=== PATIENT | female | born 1970 | race African-American/Black ===

== ENCOUNTER 2017-10-12 01:23 | Emergency (ER) | payer MEDICAID, OTHER ==
[~2017-10-12] VITALS: Ht 167.6 cm; Wt 103.2 kg
[2017-10-12] MEDS ORDERED: SOY155CA PO (01:32)
[2017-10-12] MEDS ORDERED: PROPARACAINE/FLUORESCEIN SOD 0.5-0.25% 0.5 ML OPHTHALMIC SOLUTION OD ONE (02:30)
[2017-10-12 02:32] VITALS: BP 128/78
== END 2017-10-12 02:51 | disposition home or self-care (01) ==
LOC: EMS 01:24
DX: S05.01XA Injury of conjunctiva and corneal abrasion without foreign body, right eye, initial encounter (principal); F17.210 Nicotine dependence, cigarettes, uncomplicated; Z88.2 Allergy status to sulfonamides; X58.XXXA Exposure to other specified factors, initial encounter; Y93.89 Activity, other specified; Y92.89 Other specified places as the place of occurrence of the external cause; Y99.8 Other external cause status
CPT/HCPCS: 99283; Z7610